=== PATIENT | male | born 1975 | race American Indian/Alaskan Native ===

== ENCOUNTER 2016-08-28 08:59 | Emergency (ER) | payer MEDICAID ==
[2016-08-28 09:00] VITALS: BMI 28.8
[2016-08-28 09:13] VITALS: RESP 18
[2016-08-28] MEDS ORDERED: Naproxen 550 mg Tab PO STA (10:12)
[2016-08-28] MEDS ORDERED: Naproxen 550 mg Tab PO ONE (10:18)
--- NOTE | 2016-08-28 11:08 | CT ---
PROCEDURE: CT HEAD WITHOUT CONTRAST. HISTORY: Headaches?, right pupil dilated (old), COMPARISON: None available. TECHNIQUE: Axial computed tomography images were obtained through the head/brain without intravenous contrast. This CT exam was performed using one or more of the following dose reduction techniques: Automated exposure control, adjustment of the mA and/or kV according to patient size, and/or use of iterative reconstruction technique. Radiation dose: Total exam DLP = 824.6 mGy-cm. FINDINGS: HEMORRHAGE: No intracranial hemorrhage. BRAIN: There are foci of encephalomalacia at the inferior portion of the bilateral frontal lobes right larger than left. Findings likely due to old trauma. There is mild volume loss. VENTRICLES: The ventricles are slightly dilated. CALVARIUM: Unremarkable. PARANASAL SINUSES: Vmeg-ih-gbdjylwa mucosal thickening seen in the ethmoid sinuses P MASTOID AIR CELLS: Unremarkable as visualized. No inflammatory changes. OTHER FINDINGS: None. IMPRESSION: No evidence of acute intracranial hemorrhage intracranial collection mass effect or midline shift. Foci of encephalomalacia seen at the inferior aspect of the bifrontal lobes right larger than left likely due to old trauma. Correlation with old study would be helpful. Mild atrophy. [id number] ethmoid sinuses mucosal disease.
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
[2016-08-28 12:28] VITALS: BP 138/75; PULSE 71; TEMP 98.2; O2SAT 98
== END 2016-08-28 12:29 | disposition home or self-care (01) ==
LOC: C.ER 08:59 → SUPCPDRO 08:59 → C.ER 12:29
DX: S02.40DD Maxillary fracture, left side, subsequent encounter for fracture with routine healing (principal); Y09 Assault by unspecified means; H21.561 Pupillary abnormality, right eye

== ENCOUNTER 2016-12-22 02:14 | Observation (INO) | payer MEDICAID ==
[2016-12-22 02:16] VITALS: BMI 28.8
[2016-12-22 02:32] VITALS: TEMP 97.6
--- NOTE | 2016-12-22 02:34 | C.PDOC ---
History Of Present Illness Patient presents to the ER stating he is cold and requesting a place to stay the night. Denies SI, HI, or physical complaints. Time Seen by Provider: 12/22/16 02:33 Chief Complaint (Nursing): Medical Clearance History Per: Patient History/Exam Limitations: no limitations Onset/Duration Of Symptoms: Hrs Current Symptoms Are (Timing): Still Present Severity: None Pain Scale Rating Of: 0 Recent travel outside of the [place]: No Past Medical History Reviewed: Historical Data, Nursing Documentation, Vital Signs Vital Signs: Last Vital Signs Temp 97.6 F 12/22/16 05:34 Pulse 53 L 12/22/16 05:34 Resp 16 12/22/16 05:34 BP 122/83 12/22/16 05:34 Pulse Ox 99 12/22/16 05:34 - Medical History PMH: Asthma Surgical History: No Surg Hx Family History: States: No Known Family Hx - Social History Hx Tobacco Use: Yes Hx Alcohol Use: No Hx Substance Use: Yes - Immunization History Hx Tetanus Toxoid Vaccination: No Hx Influenza Vaccination: No Hx Pneumococcal Vaccination: No Review Of Systems Constitutional: Negative for: Fever, Chills Gastrointestinal: Negative for: Nausea, Vomiting, Diarrhea Physical Exam - Physical Exam Appears: Non-toxic, No Acute Distress Skin: Warm, Dry Oral Mucosa: Moist Chest: Symmetrical, No Tenderness Cardiovascular: Rhythm Regular, No Murmur Respiratory: No Rales, No Rhonchi, No Wheezing Gastrointestinal/Abdominal: Soft, No Tenderness Neurological/Psych: Oriented x3 ED Course And Treatment O2 Sat by Pulse Oximetry: 97 (Room air) Pulse Ox Interpretation: Normal Reevaluation Time: 05:50 Reassessment Condition: Improved ED OBSERVATION Discharge: Yes Date of observation admission: 12/22/16 Time of observation admission: 04:31 - Observation admission statement Patient is being placed in observation because:: homeless - Goals of Observation Goals of observation are:: social service - Progress Note Progress Note: 12/22/16 04:32 vitals stable Disposition Counseled Patient/Family Regarding: Studies Performed, Diagnosis, Need For Followup - Disposition Disposition: HOME/ ROUTINE Disposition Time: 02:34 Condition: FAIR - Clinical Impression Clinical Impression: Medical assessment - Scribe Statement The provider has reviewed the documentation as recorded by the Scribchery Gu All medical record entries made by the Scribe were at my direction and personally dictated by me. I have reviewed the chart and agree that the record accurately reflects my personal performance of the history, physical exam, medical decision making, and the department course for this patient. I have also personally directed, reviewed, and agree with the discharge instructions and disposition.
[2016-12-22 05:35] VITALS: BP 122/83; PULSE 53; RESP 16
[2016-12-22 05:51] VITALS: O2SAT 97
== END 2016-12-22 05:50 | disposition home or self-care (01) ==
LOC: C.ER 02:14 → C.9OBSV 04:32
PROVIDERS: ADMIT Emergency Medicine; ATTEND Emergency Medicine
DX: Z04.8 Encounter for examination and observation for other specified reasons (principal); J45.909 Unspecified asthma, uncomplicated; Z87.891 Personal history of nicotine dependence
CPT/HCPCS: 99282; G0378

== ENCOUNTER 2017-03-02 21:22 | Observation (INO) | payer MEDICAID ==
[2017-03-02 21:22] VITALS: BMI 28.8
--- NOTE | 2017-03-02 23:12 | C.PDOC ---
History Of Present Illness 41 year old male presents to the ED with complaints of chronic right eye pain. Patient admits to being homeless and is seeking a place to sleep. He denies visual changes or other complaints at this time. Chief Complaint (Nursing): Eye Problem History Per: Patient History/Exam Limitations: no limitations Onset/Duration Of Symptoms: Persistent (chronic eye pain from injury ) Injury To Eye?: Yes Quality: "Pain" Wears Contact Lens?: No Associated Symptoms: Pain. denies: Decreased Vision, Swelling, FB Sensation, Itching, Discharge From Eye Recent travel outside of the [place]: No Past Medical History Reviewed: Historical Data, Nursing Documentation, Vital Signs Vital Signs: Last Vital Signs Temp 98 F 03/03/17 01:35 Pulse 56 L 03/03/17 01:35 Resp 19 03/03/17 01:35 BP 125/59 L 03/03/17 01:35 Pulse Ox 98 03/03/17 01:35 - Medical History PMH: Asthma Family History: States: Unknown Family Hx - Social History Hx Tobacco Use: Yes Hx Alcohol Use: No Hx Substance Use: Yes (DENIES) - Immunization History Hx Tetanus Toxoid Vaccination: No Hx Influenza Vaccination: No Hx Pneumococcal Vaccination: No Review Of Systems Constitutional: Negative for: Fever, Chills Eyes: Positive for: Pain (right eye pain ) Cardiovascular: Negative for: Chest Pain, Palpitations Respiratory: Negative for: Cough, Shortness of Breath Gastrointestinal: Negative for: Nausea, Vomiting, Abdominal Pain, Diarrhea Physical Exam - Physical Exam Appears: Non-toxic, No Acute Distress, Other (EtOH on breath ) Skin: Warm, Dry Head: Atraumatic, Normacephalic Eye(s): right: PERRL, EOMI, Other (chronic cloudy lens from injury years prior ) , left: Normal Inspection Oral Mucosa: Moist Neck: Supple Chest: Symmetrical, No Deformity Cardiovascular: Rhythm Regular, No Murmur Respiratory: Normal Breath Sounds, No Rales, No Rhonchi, No Wheezing Gastrointestinal/Abdominal: Soft, No Tenderness, No Distention, No Guarding, No Rebound Extremity: Normal ROM, No Tenderness Neurological/Psych: Oriented x3 ED Course And Treatment O2 Sat by Pulse Oximetry: 98 (RA) ED OBSERVATION - Observation admission statement Patient is placed on observation because of need: for resolution of acute symptoms - Goals of Observation Goals of Observation: Clinical sobriety Disposition Counseled Patient/Family Regarding: Diagnosis - Disposition Disposition: HOME/ ROUTINE Disposition Time: 05:30 Condition: STABLE - POA Present On Arrival: None - Clinical Impression Clinical Impression: Right eye injury, Homelessness - Scribe Statement The provider has reviewed the documentation as recorded by the Reggieibchery Dominguez All medical record entries made by the Reggieibchery were at my direction and personally dictated by me. I have reviewed the chart and agree that the record accurately reflects my personal performance of the history, physical exam, medical decision making, and the department course for this patient. I have also personally directed, reviewed, and agree with the discharge instructions and disposition.
[2017-03-03 05:26] VITALS: BP 131/72; PULSE 66; RESP 20; TEMP 98.3; O2SAT 99
== END 2017-03-03 06:37 | disposition home or self-care (01) ==
LOC: C.ER 21:22 → C.9OBSV 22:57
PROVIDERS: ADMIT Emergency Medicine; ATTEND Emergency Medicine
DX: S05.91XA Unspecified injury of right eye and orbit, initial encounter (principal); Z59.0 Homelessness; J45.909 Unspecified asthma, uncomplicated; F17.210 Nicotine dependence, cigarettes, uncomplicated; X58.XXXA Exposure to other specified factors, initial encounter
CPT/HCPCS: G0378 ×2

== ENCOUNTER 2017-03-03 17:18 | Emergency (ER) | payer MEDICAID ==
[2017-03-03 17:23] VITALS: BMI 21.4
[2017-03-03 17:25] VITALS: BP 108/69; RESP 18; TEMP 98.4
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
[2017-03-03 19:16] VITALS: PULSE 69; O2SAT 98
== END 2017-03-03 19:30 | disposition home or self-care (01) ==
LOC: C.ER 17:18
DX: F10.10 Alcohol abuse, uncomplicated (principal); Y90.2 Blood alcohol level of 40-59 mg/100 ml; Z59.0 Homelessness

== ENCOUNTER 2017-04-17 16:01 | Emergency (ER) | payer MEDICAID ==
[2017-04-17 16:01] VITALS: BMI 21.4
[2017-04-17 16:16] VITALS: RESP 18
--- NOTE | 2017-04-17 17:26 | C.PDOC ---
History Of Present Illness 42 year old male is brought to the Ed by EMS for public intoxication. Patients admits to smoking marijuana and drinking ETOH. He claims to be blind but vision is ok. Time Seen by Provider: 04/17/17 17:03 Chief Complaint (Nursing): Substance Abuse History Per: Patient, EMS History/Exam Limitations: intoxication Onset/Duration Of Symptoms: Hrs Current Symptoms Are (Timing): Still Present Suicide/Self Injury Attempted (Context): None Modifying Factor(s): Alcohol, Marijuana Associated Symptoms: denies: Depression, Suicidal Thoughts, Suicidal Plan Recent travel outside of the [place]: No Additional History Per: Patient, EMS Past Medical History Reviewed: Historical Data, Nursing Documentation, Vital Signs Vital Signs: Last Vital Signs Temp 98.7 F 04/17/17 18:34 Pulse 88 04/17/17 18:34 Resp 18 04/17/17 18:34 BP 106/64 04/17/17 18:34 Pulse Ox 96 04/17/17 20:15 - Medical History PMH: Asthma, Sickle Cell Disease ( PER PATIENT) Surgical History: No Surg Hx Family History: States: Unknown Family Hx - Social History Hx Tobacco Use: Yes Hx Alcohol Use: Yes Hx Substance Use: Yes - Immunization History Hx Tetanus Toxoid Vaccination: No Hx Influenza Vaccination: No Hx Pneumococcal Vaccination: No Review Of Systems Constitutional: Negative for: Fever, Chills Eyes: Negative for: Vision Change Cardiovascular: Negative for: Chest Pain, Palpitations Respiratory: Negative for: Cough, Shortness of Breath Gastrointestinal: Negative for: Nausea, Vomiting, Abdominal Pain Neurological: Negative for: Weakness, Numbness Psych: Negative for: Depression, Suicidal ideation Physical Exam - Physical Exam Appears: Other (Intoxicated) Skin: Normal Color, Warm, Dry Head: Atraumatic, Normacephalic Oral Mucosa: Moist Neck: Normal ROM, Supple Chest: Symmetrical, No Tenderness Cardiovascular: Rhythm Regular, No Murmur Respiratory: Normal Breath Sounds, No Accessory Muscle Use, No Rales, No Rhonchi , No Wheezing Gastrointestinal/Abdominal: Soft, No Tenderness Extremity: Normal ROM, No Pedal Edema, No Calf Tenderness, No Swelling Neurological/Psych: Oriented x3, Normal Speech, Normal Cognition Gait: Steady ED Course And Treatment O2 Sat by Pulse Oximetry: 96 Medical Decision Making Medical Decision Making: alcohol and marijuana abuse stable gait malingering. Disposition Doctor Will See Patient In The: Office Counseled Patient/Family Regarding: Studies Performed, Diagnosis - Disposition Referrals: Alcoholics Anonymous [Outside] [facility] [Outside] [place] [facility] [Outside] Disposition: HOME/ ROUTINE Disposition Time: 17:26 Condition: GOOD Additional Instructions: seek AA and substance abuse programs. Seek nightly senior living placement as directed. Instructions: Polysubstance Abuse (ED) Forms: [employer] (Niuean) - Clinical Impression Clinical Impression: Alcohol abuse, Cannabis abuse - Scribe Statement The provider has reviewed the documentation as recorded by the Scribe Cooper Roth All medical record entries made by the Scribe were at my direction and personally dictated by me. I have reviewed the chart and agree that the record accurately reflects my personal performance of the history, physical exam, medical decision making, and the department course for this patient. I have also personally directed, reviewed, and agree with the discharge instructions and disposition.
[2017-04-17 18:36] VITALS: BP 106/64; PULSE 88; TEMP 98.7
[2017-04-17 20:15] VITALS: O2SAT 96
== END 2017-04-17 18:51 | disposition home or self-care (01) ==
LOC: C.ER 16:01
DX: F10.10 Alcohol abuse, uncomplicated (principal); F12.10 Cannabis abuse, uncomplicated; Z87.891 Personal history of nicotine dependence

== ENCOUNTER 2017-04-28 15:16 | Emergency (ER) | payer MEDICAID ==
[2017-04-28 15:16] VITALS: BMI 21.4
[2017-04-28 15:43] VITALS: O2SAT 100
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
[2017-04-28 22:29] VITALS: BP 120/70; PULSE 68; RESP 20; TEMP 98.1
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
== END 2017-04-28 22:30 | disposition home or self-care (01) ==
LOC: C.ER 15:16
DX: F10.10 Alcohol abuse, uncomplicated (principal); Y90.9 Presence of alcohol in blood, level not specified; S70.01XA Contusion of right hip, initial encounter; V09.9XXA Pedestrian injured in unspecified transport accident, initial encounter

== ENCOUNTER 2017-05-29 21:42 | Emergency (ER) | payer MEDICAID ==
[2017-05-29 21:42] VITALS: BMI 21.4
--- NOTE | 2017-05-29 23:22 | C.PDOC ---
History Of Present Illness 42 year old homeless man presents to the ED looking for a place to stay. Patient is a homeless man that has been coming to the ED since 2011, today he claims going to a [facility]ci but was denied entry fro unknown reasons. Patient reports staying [place] [facility] [place] and states he sometimes sleeps at doorways. Patient has no visible signs of injury , trauma. Time Seen by Provider: 05/29/17 22:33 Chief Complaint (Nursing): Medical Clearance History Per: Patient History/Exam Limitations: no limitations Onset/Duration Of Symptoms: Hrs Current Symptoms Are (Timing): Gone Reports Recently: Seen In ED ([facility] yesterday) Recent travel outside of the [place]: No Additional History Per: Patient Past Medical History Reviewed: Historical Data, Nursing Documentation, Vital Signs Vital Signs: Last Vital Signs Temp 98.8 F 05/29/17 21:48 Pulse 80 05/29/17 21:48 Resp 18 05/29/17 21:48 BP 132/78 05/29/17 21:48 Pulse Ox 96 05/29/17 23:24 - Medical History PMH: Asthma, Sickle Cell Disease ( PER PATIENT) Denies: Chronic Kidney Disease Surgical History: No Surg Hx Family History: States: Unknown Family Hx - Social History Hx Tobacco Use: Yes Hx Alcohol Use: Yes Hx Substance Use: No - Immunization History Hx Tetanus Toxoid Vaccination: Yes Hx Influenza Vaccination: No Hx Pneumococcal Vaccination: No Review Of Systems Constitutional: Negative for: Fever, Chills Cardiovascular: Negative for: Chest Pain, Palpitations Respiratory: Negative for: Cough, Shortness of Breath Gastrointestinal: Negative for: Nausea, Vomiting, Abdominal Pain Skin: Negative for: Rash Neurological: Negative for: Weakness, Numbness Physical Exam - Physical Exam Appears: Non-toxic, No Acute Distress, Other (black male) Skin: Normal Color, Warm, Dry Head: Atraumatic, Normacephalic Eye(s): left: Normal Inspection, Other (cataract) Nose: No Discharge, No Deformity Oral Mucosa: Moist Neck: Normal ROM, Supple Chest: Symmetrical Cardiovascular: Rhythm Regular, No Murmur Respiratory: Normal Breath Sounds, No Rales, No Rhonchi, No Wheezing Gastrointestinal/Abdominal: Soft, No Tenderness Extremity: Normal ROM, No Pedal Edema, No Calf Tenderness, No Deformity, No Swelling Neurological/Psych: Oriented x3 ED Course And Treatment O2 Sat by Pulse Oximetry: 96 (On RA) Pulse Ox Interpretation: Normal Reevaluation Time: 01:00 Reassessment Condition: Improved (stable, sleeping, easily arousable.) Medical Decision Making Medical Decision Making: malingering, homeless since 2011. Called [facility]- they were full. Disposition - Disposition Disposition Time: 01:00 Condition: GOOD Forms: [facility] (Nigerien) - Clinical Impression Clinical Impression: Homeless - Scribe Statement The provider has reviewed the documentation as recorded by the Scribe Cooper Roth All medical record entries made by the Scribe were at my direction and personally dictated by me. I have reviewed the chart and agree that the record accurately reflects my personal performance of the history, physical exam, medical decision making, and the department course for this patient. I have also personally directed, reviewed, and agree with the discharge instructions and disposition. Physician Patient Turnover Patient Signed Over To: Justo Tse Handoff Comments: dispo in AM when sober
[2017-05-30 00:40] VITALS: RESP 16
[2017-05-30 03:57] VITALS: O2SAT 99
[2017-05-30 05:49] VITALS: BP 112/65; PULSE 72; TEMP 98
== END 2017-05-30 06:01 | disposition home or self-care (01) ==
LOC: C.ER 21:42
DX: Z59.0 Homelessness (principal); Z72.0 Tobacco use

== ENCOUNTER 2017-06-08 22:58 | Emergency (ER) | payer MEDICAID ==
[2017-06-08 22:59] VITALS: BMI 21.4
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
[2017-06-09 04:49] VITALS: BP 103/68; PULSE 82; RESP 16
[2017-06-09 05:11] VITALS: O2SAT 97
[2017-06-09 05:50] VITALS: TEMP 98
== END 2017-06-09 05:49 | disposition home or self-care (01) ==
LOC: C.ER 22:58
DX: F10.129 Alcohol abuse with intoxication, unspecified (principal); Y90.9 Presence of alcohol in blood, level not specified

== ENCOUNTER 2017-06-12 09:53 | Emergency (ER) | payer MEDICAID ==
[2017-06-12 09:54] VITALS: BMI 21.4
--- NOTE | 2017-06-12 10:08 | C.PDOC ---
History Of Present Illness 42 y/o homeless alcoholic male brought by ambulance to the ER because he does not want to go outside today. Patient reports that he feels unwell. Of note, patient has visited the ER many times in the past for treatment of alcohol abuse. Time Seen by Provider: 06/12/17 10:03 History Per: Patient History/Exam Limitations: no limitations Onset/Duration Of Symptoms: Hrs Current Symptoms Are (Timing): Still Present Severity: Moderate Past Medical History Reviewed: Historical Data, Nursing Documentation, Vital Signs Vital Signs: Last Vital Signs Temp 98 F 06/12/17 10:10 Pulse 90 06/12/17 10:10 Resp 18 06/12/17 10:10 BP 135/76 06/12/17 10:10 Pulse Ox 95 06/12/17 10:10 - Medical History PMH: Asthma, Sickle Cell Disease ( PER PATIENT) Denies: Chronic Kidney Disease Surgical History: No Surg Hx Family History: States: No Known Family Hx - Social History Hx Tobacco Use: Yes Hx Alcohol Use: Yes Hx Substance Use: No - Immunization History Hx Tetanus Toxoid Vaccination: Yes Hx Influenza Vaccination: No Hx Pneumococcal Vaccination: No Review Of Systems Except As Marked, All Systems Reviewed And Found Negative. Constitutional: Negative for: Fever, Chills Neurological: Negative for: Weakness, Numbness Physical Exam - Physical Exam Appears: No Acute Distress, Other (disheveled, foul-smelling) Skin: Normal Color, Warm Head: Atraumatic, Normacephalic Eye(s): bilateral: Normal Inspection, PERRL Ear(s): Bilateral: Normal Nose: Normal Oral Mucosa: Moist Throat: Normal, No Erythema, No Exudate Neck: Supple Chest: Symmetrical Cardiovascular: Rhythm Regular Respiratory: Normal Breath Sounds, No Accessory Muscle Use Gastrointestinal/Abdominal: Normal Exam, Soft, No Tenderness Extremity: Normal ROM Neurological/Psych: Oriented x3, Normal Speech, Normal Cognition, Normal Motor, Normal Sensation Medical Decision Making Medical Decision Making: homeless [facility] because he didnt' want to go outside today no new complaints normal exam- well known to this ED no acute issues- referred to [facility] Disposition Doctor Will See Patient In The: Office Counseled Patient/Family Regarding: Studies Performed, Diagnosis - Disposition Referrals: Alcoholics Anonymous [Outside] [facility] [Outside] [facility] [Outside] Disposition: HOME/ ROUTINE Disposition Time: 10:07 Condition: GOOD Additional Instructions: continue nightly [facility] placement and warming shelters during the day. See AA for your alcohol abuse or our outpatient detox/psych services. Forms: General Discharge Instructions, [facility] (Iraqi) - Clinical Impression Clinical Impression: Homeless - Scribe Statement The provider has reviewed the documentation as recorded by the Sachin Bee Provider Attestation: All medical record entries made by the Sachin were at my direction and personally dictated by me. I have reviewed the chart and agree that the record accurately reflects my personal performance of the history, physical exam, medical decision making, and the department course for this patient. I have also personally directed, reviewed, and agree with the discharge instructions and disposition.
[2017-06-12 10:11] VITALS: BP 135/76; PULSE 90; RESP 18; TEMP 98; O2SAT 95
== END 2017-06-12 10:14 | disposition home or self-care (01) ==
LOC: C.ER 09:53
DX: Z00.00 Encounter for general adult medical examination without abnormal findings (principal); Z59.0 Homelessness

== ENCOUNTER 2017-06-12 22:29 | Emergency (ER) | payer MEDICAID ==
[2017-06-12 22:29] VITALS: BMI 21.4
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
[2017-06-13] MEDS ORDERED: Permethrin 1% Kit 59 ML BOTTLE TOP ONE (02:33)
--- NOTE | 2017-06-13 02:50 | CT ---
EXAM: CT Head Without Intravenous Contrast CLINICAL HISTORY: 42 years old, male; Injury or trauma; Fall; Initial encounter; Blunt trauma (contusions or hematomas) TECHNIQUE: Axial computed tomography images of the head/brain without intravenous contrast. All CT scans at this facility use one or more dose reduction techniques, viz.: automated exposure control; ma/kV adjustment per patient size (including targeted exams where dose is matched to indication; i.e. head); or iterative reconstruction technique. 753 images are submitted. Coronal and sagittal reformatted images were created and reviewed. COMPARISON: No relevant prior studies available. FINDINGS: Brain: Bilateral right more than left frontal lobe patchy hypodensity representing encephalomalacia secondary to remote trauma versus infarct. There is nodular hyperdensity in the right temporal lobe measuring 1.1 cm seen on image 4 series 2 and is not seen on the reconstruction images representing volume averaging. There is left temporal extra-axial calcified mass seen on image 4 series 2 representing volume averaging. Cerebellar volume loss. Mild patchy periventricular white matter hypodensity. No hemorrhage. Ventricles: Unremarkable. No ventriculomegaly. Bones/joints: Reversal of the normal cervical lordosis may be positional versus muscular spasm. No acute fracture. Soft tissues: Unremarkable. Sinuses: Moderate patchy sinus disease. Mastoid air cells: Unremarkable. No mastoid effusion. IMPRESSION: No evidence of an acute intracranial hemorrhage, midline shift or mass effect is identified.
--- NOTE | 2017-06-13 08:36 | RAD ---
PROCEDURE: Right Knee Radiographs. HISTORY: Posttraumatic right leg pain. COMPARISON: None. FINDINGS: BONES: Normal. No fracture. JOINTS: Normal. No osteoarthritis. JOINT EFFUSION: None. OTHER FINDINGS: None. IMPRESSION: Normal radiographs of the right knee.
[2017-06-13 10:12] VITALS: RESP 17; TEMP 97.7
[2017-06-13 13:21] VITALS: BP 109/71; PULSE 62; O2SAT 100
== END 2017-06-13 14:21 | disposition home or self-care (01) ==
LOC: C.ER 22:29
DX: S80.01XA Contusion of right knee, initial encounter (principal); W18.30XA Fall on same level, unspecified, initial encounter; F10.10 Alcohol abuse, uncomplicated; Y90.9 Presence of alcohol in blood, level not specified; B86 Scabies

== ENCOUNTER 2017-06-15 20:55 | Emergency (ER) | payer MEDICAID ==
[2017-06-15 20:55] VITALS: BMI 21.4
[2017-06-15 21:52] VITALS: BP 132/76; PULSE 82; RESP 20; TEMP 97.9; O2SAT 97
--- NOTE | 2017-06-15 23:00 | C.PDOC ---
History Of Present Illness 42 year old male presents to the ED for evaluation of right knee and right lower back pain which began a few days ago. Patient was evaluated in this ED twice on 06/12 [address] underwent [address] head CT and knee XR. Patient presents to the ED again, stating he needs medicine for his right knee and lower back pain. He states he is homeless. Patient has no other complaints at this time. Time Seen by Provider: 06/15/17 22:08 Chief Complaint (Nursing): Back Pain History Per: Patient History/Exam Limitations: no limitations Onset/Duration Of Symptoms: Days Current Symptoms Are (Timing): Still Present Quality Of Discomfort: "Pain" Associated Symptoms: denies: Incontinence, New Weakness, New Numbness Additional History Per: Patient Past Medical History Reviewed: Historical Data, Nursing Documentation, Vital Signs Vital Signs: Last Vital Signs Temp 97.9 F 06/15/17 21:48 Pulse 82 06/15/17 21:48 Resp 20 06/15/17 21:48 BP 132/76 06/15/17 21:48 Pulse Ox 97 06/16/17 05:33 - Medical History PMH: Asthma, Sickle Cell Disease ( PER PATIENT) Denies: Chronic Kidney Disease Surgical History: No Surg Hx Family History: States: Unknown Family Hx - Social History Hx Tobacco Use: Yes Hx Alcohol Use: Yes (patient denies) Hx Substance Use: No (patient denies) - Immunization History Hx Tetanus Toxoid Vaccination: Yes Hx Influenza Vaccination: No Hx Pneumococcal Vaccination: No Review Of Systems Musculoskeletal: Positive for: Back Pain (right, lower ), Other (right knee pain ) Neurological: Negative for: Weakness, Numbness Physical Exam - Physical Exam Appears: Non-toxic, No Acute Distress Skin: Normal Color, Warm, Dry Neck: Supple Back: No Vertebral Tenderness, No Paraspinal Tenderness Extremity: No Tenderness, Capillary Refill (less than 2 seconds ), Other ( immobilizer in place on right knee. patient refuses to remove for evaluation ) Neurological/Psych: Oriented x3, Normal Speech, Normal Cognition ED Course And Treatment O2 Sat by Pulse Oximetry: 97 (on RA) Pulse Ox Interpretation: Normal Progress Note: Motrin PO administered. On reassessment, patient is resting comfortably, showing no signs of distress and reports an improvement in his symtpoms. Patient is stable for discharge and is advised to follow up with PMD within 1-2 days for further evaluation. Disposition Counseled Patient/Family Regarding: Diagnosis, Need For Followup, Rx Given - Disposition Referrals: [facility] [Outside] Disposition: HOME/ ROUTINE Disposition Time: 22:57 Condition: STABLE Additional Instructions: Take all meds as needed Follow up in clinic Return to ER if worse Prescriptions: Ibuprofen [Motrin] 1 tab PO TID PRN #20 tab PRN Reason: Pain Instructions: Knee Pain (ED), Back Pain (ED) Forms: [employer] (Belarusian) - Clinical Impression Clinical Impression: Low back pain, Right knee pain - PA / PAYROLL AND BENEFITS SPECIALIST / Resident Statement MD/DO has reviewed & agrees with the documentation as recorded. - Scribe Statement The provider has reviewed the documentation as recorded by the Scribe (Ludy Cyr) All medical record entries made by the Scribe were at my direction and personally dictated by me. I have reviewed the chart and agree that the record accurately reflects my personal performance of the history, physical exam, medical decision making, and the department course for this patient. I have also personally directed, reviewed, and agree with the discharge instructions and disposition.
== END 2017-06-15 23:55 | disposition home or self-care (01) ==
LOC: C.ER 20:55
DX: M25.561 Pain in right knee (principal); M54.5 Low back pain; Z59.0 Homelessness; Z87.891 Personal history of nicotine dependence

== ENCOUNTER 2017-08-11 09:59 | Emergency (ER) | payer MEDICAID ==
[2017-08-11 10:00] VITALS: BMI 21.4
[2017-08-11 10:23] VITALS: BP 125/69; PULSE 77; RESP 16; TEMP 98.1; O2SAT 100
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
== END 2017-08-11 15:07 | disposition home or self-care (01) ==
LOC: C.ER 09:59
DX: S05.91XA Unspecified injury of right eye and orbit, initial encounter (principal); X58.XXXA Exposure to other specified factors, initial encounter; H54.7 Unspecified visual loss; Z72.0 Tobacco use

== ENCOUNTER 2017-08-29 21:25 | Emergency (ER) | payer MEDICAID ==
--- NOTE | 2017-08-29 22:10 | C.PDOC ---
History Of Present Illness 42 y/o homeless male with a PMHx of alcohol abuse, presents to the ED via ambulance requesting a place to stay the night. Patient reports he could not get into a senior living in time. Of note, patient reports he is chronically blind. Offers no acute physical complaints. Time Seen by Provider: 08/29/17 22:05 Chief Complaint (Nursing): Medical Clearance History Per: Patient History/Exam Limitations: no limitations Past Medical History Reviewed: Historical Data, Nursing Documentation, Vital Signs Vital Signs: Last Vital Signs Temp 98.1 F 08/29/17 21:43 Pulse 92 H 08/29/17 21:43 Resp 18 08/29/17 21:43 BP 152/94 H 08/29/17 21:43 Pulse Ox 94 L 08/29/17 22:10 - Medical History PMH: Denies: Chronic Kidney Disease Other PMH: Alcoholism Surgical History: No Surg Hx Family History: States: No Known Family Hx - Social History Hx Alcohol Use: No (DENIES) Hx Substance Use: No (DENIES) - Immunization History Hx Tetanus Toxoid Vaccination: No Hx Influenza Vaccination: No Hx Pneumococcal Vaccination: No Review Of Systems Except As Marked, All Systems Reviewed And Found Negative. Constitutional: Negative for: Fever Cardiovascular: Negative for: Chest Pain Respiratory: Negative for: Shortness of Breath Psych: Negative for: Suicidal ideation Physical Exam - Physical Exam Appears: No Acute Distress, Unkempt, Other (Foul smelling, + alcohol on breath) Skin: Normal Color, Warm, Dry Head: Atraumatic, Normacephalic Eye(s): bilateral: Normal Inspection Oral Mucosa: Moist Neck: Normal, Normal ROM Chest: Symmetrical Cardiovascular: Rhythm Regular Respiratory: Normal Breath Sounds, No Accessory Muscle Use Gastrointestinal/Abdominal: Soft, No Tenderness, No Distention Extremity: Bilateral: Atraumatic, Normal Color And Temperature Neurological/Psych: Oriented x3, Normal Speech ED Course And Treatment O2 Sat by Pulse Oximetry: 94 (RA) Pulse Ox Interpretation: Normal Medical Decision Making Medical Decision Making: Impression: homeless, chronic blindness, alcohol abuse. Patient requires no further ED intervention and is stable for d/c home Resources provided for shelters Disposition Doctor Will See Patient In The: Office Counseled Patient/Family Regarding: Diagnosis - Disposition Referrals: [facility] [Outside] [facility] [Outside] Disposition: HOME/ ROUTINE Disposition Time: 22:10 Condition: GOOD Additional Instructions: seek nightly senior living placement Forms: General Discharge Instructions, [facility] ([place]) - POA Present On Arrival: None - Clinical Impression Clinical Impression: Homeless single person - Scribe Statement The provider has reviewed the documentation as recorded by the Scribe (Abigail Munoz) Provider Attestation: All medical record entries made by the Scribe were at my direction and personally dictated by me. I have reviewed the chart and agree that the record accurately reflects my personal performance of the history, physical exam, medical decision making, and the department course for this patient. I have also personally directed, reviewed, and agree with the discharge instructions and disposition.
[2017-08-30 07:52] VITALS: BP 118/83; PULSE 67; RESP 16; TEMP 98; O2SAT 97
== END 2017-08-30 08:00 | disposition home or self-care (01) ==
LOC: C.ER 21:25 → MERGE 21:25 → C.ER 08-30 08:00
DX: F10.10 Alcohol abuse, uncomplicated (principal); Y90.9 Presence of alcohol in blood, level not specified; H54.7 Unspecified visual loss; Z59.0 Homelessness

== ENCOUNTER 2017-09-29 06:12 | Emergency (ER) | payer MEDICAID ==
[2017-09-29 06:13] VITALS: BMI 21.4
[2017-09-29 06:22] VITALS: BP 122/84; PULSE 69; RESP 20; TEMP 97.8; O2SAT 99
[2017-09-29] MEDS ORDERED: Naproxen 550 mg Tab PO ONE (07:31)
[2017-09-29] MEDS: Naproxen 550 mg Tab PO STA (07:32)
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
--- NOTE | 2017-09-29 09:53 | RAD ---
PROCEDURE: Radiographs of the Lumbar Spine. HISTORY: low back pain after fall COMPARISON: No prior. FINDINGS: BONES: Straightening of the normal lordosis. No listhesis. No fracture. DISC SPACES: Unremarkable. OTHER FINDINGS: None. IMPRESSION: Unremarkable radiographs of the lumbar spine.
== END 2017-09-29 11:32 | disposition home or self-care (01) ==
LOC: C.ER 06:12
DX: M54.5 Low back pain (principal)